=== PATIENT | female | born 1975 | race African-American/Black ===

== ENCOUNTER → 2017-12-27 | Outpatient (CLI) | payer OTHER ==
--- NOTE | 2017-12-27 12:47 | RADIOLOGY REPORT (SQ) ---
EXAM DESCRIPTION: PARANASAL SINUSES COMPLETED DATE/TIME: 12/27/2017 12:39 pm REASON FOR STUDY: OTHER GENERAL SYMPTOMS AND SIGNS R68.89 OTHER GENERAL SYMPTOMS AND SIGNS COMPARISON: None. NUMBER OF VIEWS: Three views. TECHNIQUE: Images of the paranasal sinuses acquired. LIMITATIONS: None. FINDINGS: ORBITS: No fracture. No foreign body. SINUSES: No mucosal thickening. No air fluid levels. FACIAL BONES: No fracture. OTHER: No other significant finding. IMPRESSION: NO PLAIN RADIOGRAPHIC EVIDENCE FOR SINUS DISEASE. TECHNICAL DOCUMENTATION: JOB ID: [id number] [employer]- All Rights Reserved Reading location - IP/workstation name: [email or web address]
== END ==
LOC: OD 12:20
PROVIDERS: ATTEND Allergy & Immunology
DX: R68.89 Other general symptoms and signs (principal)
CPT/HCPCS: 70220